=== PATIENT | female | born 1970 ===

== ENCOUNTER 2016-12-11 17:41 | Emergency (ER) | payer OTHER ==
[2016-12-11 17:47] VITALS: RESP 18; O2SAT 100
[2016-12-11] MEDS ORDERED: Acetaminophen-Codeine 300/30 mg Tab PO STA (18:25)
[2016-12-11] MEDS ORDERED: Acetaminophen-Codeine 300/30 mg Tab PO ONE (18:35)
--- NOTE | 2016-12-11 19:02 | C.PDOC ---
History Of Present Illness 46 yr old female presents to the ER with complaints left ear pain and left sided throat pain for the past 2-3 days. Patient reports of pain while opening her jaw and swallowing. Patient denies fever, chest pain, SOB, nausea, vomiting , dizziness, headache, weakness or numbness. Time Seen by Provider: 12/11/16 17:45 Chief Complaint (Nursing): ENT Problem History Per: Patient History/Exam Limitations: None Onset/Duration Of Symptoms: Days (2-3 days) Past Medical History Reviewed: Historical Data, Nursing Documentation, Vital Signs Vital Signs: Last Vital Signs Temp 98.5 F 12/11/16 19:05 Pulse 70 12/11/16 19:05 Resp 18 12/11/16 19:05 BP 102/67 12/11/16 19:05 Pulse Ox 100 12/11/16 19:10 Family History: States: No Known Family Hx - Social History Hx Alcohol Use: Yes Hx Substance Use: No Review Of Systems Except As Marked, All Systems Reviewed And Found Negative. Constitutional: Negative for: Fever ENT: Positive for: Ear Pain (Left ear ), Throat Pain (Left sided throat pain ) Cardiovascular: Negative for: Chest Pain Respiratory: Negative for: Shortness of Breath Gastrointestinal: Negative for: Nausea, Vomiting Neurological: Negative for: Weakness, Numbness, Headache, Dizziness Physical Exam - Physical Exam Appears: Well, Non-toxic, No Acute Distress Skin: Warm, Dry, No Rash Head: Atraumatic, Normacephalic Oral Mucosa: Moist Throat: Normal, No Erythema, No Exudate, No Drooling Neck: Normal, Normal ROM, No Supple Lymphatic: Adenopathy (Left sided cervical adenopathy ) Chest: Symmetrical, No Tenderness Cardiovascular: Rhythm Regular, No Murmur Respiratory: Normal Breath Sounds, No Rales, No Rhonchi, No Stridor, No Wheezing ED Course And Treatment O2 Sat by Pulse Oximetry: 100 (on RA) Pulse Ox Interpretation: Normal Medical Decision Making Medical Decision Making: PLAN: * Tylenol PO * Toradol IM On re-exam, the patient reports improvement of symptoms. Lungs are CTA, heart is RRR, abdomen is soft, non-tender and patient is tolerating PO well. Follow up with the medical doctor within 1-2 days without fail. Return if worsened. Disposition - Disposition Referrals: Joe Christianson MD [Staff Provider] - Disposition: HOME/ ROUTINE Disposition Time: 18:59 Condition: GOOD Additional Instructions: Follow up with the medical doctor within 1-2 days without fail. Return if worsened. Prescriptions: Acetaminophen/Codeine [Tylenol/Codeine 300 MG/30 MG] 1 tab PO Q6 PRN #20 tab PRN Reason: Pain, Moderate (4-7) Ibuprofen [Motrin] 600 mg PO TID #21 tab Instructions: Pharyngitis (ED) - Clinical Impression Clinical Impression: Pharyngitis, Otitis media - PA / RN PROGRESSIVE CARE / Resident Statement MD/DO has reviewed & agrees with the documentation as recorded. - Scribe Statement The provider has reviewed the documentation as recorded by the Scribe Virginia Marlow All medical record entries made by the Brianibavery were at my direction and personally dictated by me. I have reviewed the chart and agree that the record accurately reflects my personal performance of the history, physical exam, medical decision making, and the department course for this patient. I have also personally directed, reviewed, and agree with the discharge instructions and disposition.
[2016-12-11 19:06] VITALS: BP 102/67; PULSE 70; TEMP 98.5
== END 2016-12-11 19:06 | disposition home or self-care (01) ==
LOC: C.ER 17:41
DX: H66.92 Otitis media, unspecified, left ear (principal); J02.9 Acute pharyngitis, unspecified
CPT/HCPCS: 96372; 99283; J1885